=== PATIENT | female | born 1995 ===

== ENCOUNTER 2022-05-12 16:05 | Emergency (ER) | payer SELFPAY ==
[2022-05-12 17:20] LABS: Basophils % (Auto) 0.2 % (0.0-1.8); Eosinophils # (Auto) 0.1 K/mm3 (0.0-0.4); Hematocrit 41.7 % (30.3-42.9); Hemoglobin 13.9 gm/dl (10.1-14.3); Lymphocytes # (Auto) 1.5 K/mm3 (1.2-5.4); Lymphocytes % (Auto) 24.6 % (13.4-35.0); Mean Corpuscular HGB Conc 33 % (30-34); Mean Corpuscular Volume 93 fl (79-97); Monocytes # (Auto) 0.4 K/mm3 (0.0-0.8); Monocytes % (Auto) 6.9 % (0.0-7.3); Platelet Count 240 K/mm3 (140-440); Red Blood Count 4.46 M/mm3 (3.65-5.03); Red Cell Distribution Width 12.9 % (13.2-15.2)
[2022-05-12 17:41] LABS: Alanine Aminotransferase 11 units/L (7-56); Albumin 4.5 g/dL (3.9-5); Blood Urea Nitrogen 10 mg/dL (7-17); Calcium 9.6 mg/dL (8.4-10.2); Hemolysis Index 5
[2022-05-12 17:57] LABS: BUN/Creatinine Ratio 20
[2022-05-12 18:13] LABS: Bilirubin,Urine NEG (Negative); Blood,Urine SM (Negative); Color,Urine Yellow (Yellow); Protein,Urine <15 mg/dL mg/dL (Negative); Urobilinogen,Urine < 2.0 mg/dL (<2.0)
[2022-05-12 18:17] LABS: WBC,Urine < 1.0 /HPF (0.0-6.0)
--- NOTE | 2022-05-12 20:06 | Ultrasound Report ---
US OB transvaginal INDICATION / CLINICAL INFORMATION: VAGINAL BLEEDING. COMPARISON: None available. FINDINGS: Uterus measures 6.5 cm in length. There is somewhat ovoid anechoic focus within the lower uterine seg ment could conceivably be an abnormal gestational sac. No yolk sac or pole is seen. Ovaries are unremarkable. No adnexal lesions are seen. There is scant free fluid in the cul-de-sac. IMPRESSION: 1. Somewhat ovoid and echogenicity within the lower uterine segment near the cervix could be a gestat ional sac. No yolk sac or pole is identified. This could be due to miscarriage in progress. Cor relation with serial beta hCG levels and short-term sonographic follow-up is recommended. 2. No adnexal lesions. Signer Name: Issac Graff MD Signed: 05/12/2022 8:02 PM Workstation Name: [id number]
[2022-05-12] MEDS ORDERED: HYDROcodone/ACETAMINOPHEN 5-325 MG TAB PO ONE (21:45)
--- NOTE | 2022-05-12 21:45 | Emergency Department Report ---
ED HPI - General Chief complaint: Vaginal Bleeding Stated complaint: VAGINAL BLEEDING (7 WKS PREG) Time Seen by Provider: 05/12/22 21:18 Source: patient Mode of arrival: Ambulatory Limitations: Language Barrier - History of Present Illness Initial comments: Patient is a 26-year-old Icelandic-speaking female, patient is G1, P0, A0, who presents for bilateral lower abdominal pain and vaginal bleeding times today. She is currently 7 weeks last menstrual cycle 8 weeks ago. Abdominal pain is described at 4/10 cramping. With moderate bleeding. Patient states using 3 pads tod, there has been no nausea vomiting no fever or chills. Patient denies dysuria frequency or urgency. Patient denies other medical problems no gestational diabetes no hypertension. Patient denies other symptoms. MD Complaint: vaginal bleeding - Related Data Previous Rx's Medication Instructions Recorded Last Taken Type Acetaminophen [Non-Aspirin Pain 1,000 mg PO Q6H PRN #30 tab 05/12/22 Unknown Rx Relief] Allergies Allergy/AdvReac Type Severity Reaction Status Date / Time No Known Allergies Allergy Verified 05/12/22 16:50 ED Review of Systems ROS: Stated complaint: VAGINAL BLEEDING (7 WKS PREG) Other details as noted in HPI Constitutional: denies: chills, fever Eyes: denies: eye pain, eye discharge, vision change ENT: denies: ear pain, throat pain Respiratory: denies: cough, shortness of breath, wheezing Cardiovascular: denies: chest pain, palpitations Endocrine: no symptoms reported Gastrointestinal: abdominal pain, other (Cramping). denies: nausea, vomiting, diarrhea Genitourinary: other. denies: urgency, dysuria, frequency (Vaginal bleeding), hematuria, discharge Musculoskeletal: denies: back pain, joint swelling, arthralgia Skin: denies: rash, lesions Neurological: denies: headache, weakness, paresthesias, vertigo Psychiatric: denies: anxiety, depression Hematological/Lymphatic: denies: easy bleeding, easy bruising ED Past Medical Hx - Past Medical History Previous Medical History?: No - Medications Home Medications: Home Medications Medication Instructions Recorded Confirmed Last Taken Type Acetaminophen [Non-Aspirin Pain 1,000 mg PO Q6H PRN #30 tab 05/12/22 Unknown Rx Relief] ED Physical Exam - General Limitations: Language Barrier General appearance: alert, in no apparent distress - Head Head exam: Present: normocephalic, normal inspection - Eye Eye exam: Present: EOMI Pupils: Present: normal accommodation - ENT ENT exam: Present: mucous membranes moist - Neck Neck exam: Present: normal inspection, full ROM. Absent: tenderness, l ymphadenopathy - Respiratory Respiratory exam: Present: normal lung sounds bilaterally. Absent: respiratory distress, wheezes, stridor - Cardiovascular Cardiovascular Exam: Present: regular rate, normal rhythm, normal heart sounds. Absent: systolic murmur, diastolic murmur, rubs, gallop - GI/Abdominal GI/Abdominal exam: Present: soft, normal bowel sounds. Absent: distended, ten derness - Rectal Rectal exam: Present: deferred - External exam: Present: other (Exam deferred per patient) - Extremities Exam Extremities exam: Present: normal inspection, full ROM, normal capillary refill. Absent: tenderness, pedal edema - Back Exam Back exam: Present: normal inspection, full ROM. Absent: CVA tenderness (R), CVA tenderness (L) - Neurological Exam Neurological exam: Present: alert, oriented X3, CN II-XII intact, normal gait - Expanded Neurological Exam Expanded Patient oriented to: Present: person, place, time Speech: Present: fluid speech Motor strength exam: RUE: 5, LUE: 5, RLE: 5, LLE: 5 Best Eye Response (Matt): (4) open spontaneously Best Motor Response (Matt): (6) obeys commands Best Verbal Response (Matt): (5) oriented Mcandrews Total: 15 - Psychiatric Psychiatric exam: Present: normal affect, normal mood - Skin Skin exam: Present: warm, dry, intact, normal color. Absent: rash ED Medical Decision Making - Lab Data Result diagrams: 05/12/22 16:57 05/12/22 16:57 Labs 05/12/22 05/12/22 05/12/22 16:57 16:57 16:57 WBC 6.0 RBC 4.46 Hgb 13.9 Hct 41.7 MCV 93 MCH 31 MCHC 33 RDW 12.9 L Plt Count 240 Lymph % (Auto) 24.6 Bullock % (Auto) 6.9 Eos % (Auto) 1.0 Baso % (Auto) 0.2 Lymph # (Auto) 1.5 Bullock # (Auto) 0.4 Eos # (Auto) 0.1 Baso # (Auto) 0.0 Seg Neutrophils % 67.3 Seg Neutrophils # 4.0 Sodium 139 Potassium 3.8 Chloride 102.5 Carbon Dioxide 26 Anion Gap 14 BUN 10 Creatinine 0.5 L Estimated GFR > 60 BUN/Creatinine Ratio 20 Glucose 95 Calcium 9.6 Total Bilirubin 0.30 AST 14 ALT 11 Alkaline Phosphatase 88 Total Protein 7.5 Albumin 4.5 Albumin/Globulin Ratio 1.5 HCG, Quant 3307 H Urine Color Urine Turbidity Urine pH Ur Specific [place] Urine Protein Urine Glucose (UA) Urine Ketones Urine Blood Urine Nitrite Urine Bilirubin Urine Urobilinogen Ur Leukocyte Esterase Urine WBC (Auto) Urine RBC (Auto) U Epithel Cells (Auto) Blood Type 05/12/22 05/12/22 16:57 Unknown WBC RBC Hgb Hct MCV MCH MCHC RDW Plt Count Lymph % (Auto) Bullock % (Auto) Eos % (Auto) Baso % (Auto) Lymph # (Auto) Bullock # (Auto) Eos # (Auto) Baso # (Auto) Seg Neutrophils % Seg Neutrophils # Sodium Potassium Chloride Carbon Dioxide Anion Gap BUN Creatinine Estimated GFR BUN/Creatinine Ratio Glucose Calcium Total Bilirubin AST ALT Alkaline Phosphatase Total Protein Albumin Albumin/Globulin Ratio HCG, Quant Urine Color Yellow Urine Turbidity Clear Urine pH 6.0 Ur Specific [place] 1.012 Urine Protein <15 mg/dl Urine Glucose (UA) Neg Urine Ketones Neg Urine Blood Sm Urine Nitrite Neg Urine Bilirubin Neg Urine Urobilinogen < 2.0 Ur Leukocyte Esterase Neg Urine WBC (Auto) < 1.0 Urine RBC (Auto) 3.0 U Epithel Cells (Auto) 1.0 Blood Type O POSITIVE - Radiology Data Radiology results: report reviewed, image reviewed US OB transvaginal INDICATION / CLINICAL INFORMATION: VAGINAL BLEEDING. COMPARISON: None available. FINDINGS: Uterus measures 6.5 cm in length. There is somewhat ovoid anechoic focus within the lower uterine segment could conceivably be an abnormal gestational sac. No yolk sac or pole is seen. Ovaries are unremarkable. No adnexal lesions are seen. There is scant free fluid in the cul-de-sac. IMPRESSION: 1. Somewhat ovoid and echogenicity within the lower uterine segment near the cervix could be a gestational sac. No yolk sac or pole is identified. This could be due to miscarriage in progress. Correlation with serial beta hCG levels and short-term sonographic follow-up is recommended. 2. No adnexal lesions. Signer Name: Issac Graff MD Signed: 05/12/2022 8:02 PM Workstation Name: [id number] Transcribed By: ARMINDA Dictated By: Issac Graff MD Electronically Authenticated By: Issac Graff MD Signed Date/Time: 05/12/222001 DD/ 99 TD/TT: - Medical Decision Making Transvaginal ultrasound as above, labs noted as above, this is likely threatened miscarriage, explained diagnosis to patient including follow-up with [facility] tomorrow. Installation Coordinator was used for this case. Patient verbalizes agreement and understanding with same. Patient is currently alert oriented x3 amatory steady gait in no acute no acute distress. Patient will follow-up with [facility] in 1 to 2 days. Critical care attestation.: If time is entered above; I have spent that time in minutes in the direct care of this critically ill patient, excluding procedure time. ED Disposition Clinical Impression: Threatened miscarriage in early Disposition: 01 HOME / SELF CARE / HOMELESS Is pt being admited?: No Does the pt Need Aspirin: No Condition: Stable Instructions: Threatened Miscarriage, Vaginal Bleeding During , First Trimester, [id number] Additional Instructions: Take medications as prescribed, pelvic rest no sex until follow-up with [facility].. Follow-up with [facility] in 1 to 2 days. Return to emergency department should symptoms worsen. Prescriptions: Acetaminophen [Non-Aspirin Pain Relief] 1,000 mg PO Q6H PRN #30 tab PRN Reason: pain Referrals: ABRAHAM HADDAD MD [Staff Physician] - 2-3 Days Forms: Work/School Release Form(ED) Time of Disposition: 21:49 Print Language: BENGALI
[2022-05-12 21:59] VITALS: BP 112/72
== END 2022-05-12 22:42 | disposition home or self-care (01) ==
LOC: ED 16:05
DX: O20.0 Threatened abortion (principal); Z79.899 Other long term (current) drug therapy; Z3A.01 Less than 8 weeks gestation of pregnancy
CPT/HCPCS: 36415; 76817; 80053; 81001; 84702; 85025; 86900; 86901; 99284